=== PATIENT | male | born 1945 | race Caucasian/White ===

== ENCOUNTER 2017-02-20 06:04 | Inpatient (IN) | payer OTHER ==
[~2017-02-20] VITALS: Ht 182.9 cm; Wt 79.9 kg
[2017-02-20 06:46] LABS: HEMOGLOBIN 14.7 gm/dl (14.0-17.5); RED BLOOD COUNT 5.03 M/UL (4.20-5.50); WHITE BLOOD COUNT 7.6 K/UL (4.5-11.0)
[2017-02-20] MEDS ORDERED: MULTI-DAY VITA1 EACH PO (12:06)
[2017-02-20] MEDS ORDERED: METOPROLOL SUC100 MG PO (12:07)
[2017-02-20] MEDS ORDERED: DOXYCYCLINE HY100 MG PO (12:07)
[2017-02-20] MEDS ORDERED: VALSARTAN80 MG PO (12:08)
[2017-02-20] MEDS ORDERED: NITROSTAT 0.40.4 MG SL (12:08)
[2017-02-20] MEDS ORDERED: ASPIR 8181 MG PO (12:09)
[2017-02-21 05:57] LABS: WHITE BLOOD COUNT 7.6 K/UL (4.5-11.0)
[2017-02-21 05:58] LABS: RED BLOOD COUNT 4.51 M/UL (4.20-5.50)
[2017-02-22 04:30] LABS: HEMOGLOBIN 13.5 gm/dl (14.0-17.5); RED BLOOD COUNT 4.69 M/UL (4.20-5.50)
[2017-02-23 04:19] LABS: HEMOGLOBIN 13.2 gm/dl (14.0-17.5); RED BLOOD COUNT 4.53 M/UL (4.20-5.50); WHITE BLOOD COUNT 7.3 K/UL (4.5-11.0)
[2017-02-24] MEDS ORDERED: NORVASC 5 MG TAB5 MG PO (12:36)
[2017-02-24] MEDS ORDERED: DAILY MULTIPLE1 EAC1 PO (12:51)
[2017-02-24] MEDS ORDERED: HYDROCHLOROTHIA25 MG PO ×2 (12:52→12:53)
== END 2017-02-24 14:14 | disposition home or self-care (01) | DRG 683 ==
LOC: ER1 06:04 → ZEROF 10:51 → PROG CARE 10:51
PROVIDERS: Internal Medicine; Internal Medicine Interventional Cardiology; Internal Medicine Nephrology; Physician Assistant; Physician Assistant Medical; ADMIT Internal Medicine
DX: I12.9 Hypertensive chronic kidney disease with stage 1 through stage 4 chronic kidney disease, or unspecified chronic kidney disease (principal); N17.9 Acute kidney failure, unspecified; N18.4 Chronic kidney disease, stage 4 (severe); Q61.2 Polycystic kidney, adult type; I16.0 Hypertensive urgency; I25.10 Atherosclerotic heart disease of native coronary artery without angina pectoris; E78.5 Hyperlipidemia, unspecified; R07.9 Chest pain, unspecified; I65.21 Occlusion and stenosis of right carotid artery; D50.9 Iron deficiency anemia, unspecified; R74.8 Abnormal levels of other serum enzymes; I95.1 Orthostatic hypotension; R42 Dizziness and giddiness; E04.9 Nontoxic goiter, unspecified; R11.2 Nausea with vomiting, unspecified; I25.2 Old myocardial infarction; Z95.5 Presence of coronary angioplasty implant and graft; Z86.73 Personal history of transient ischemic attack (TIA), and cerebral infarction without residual deficits; Z85.828 Personal history of other malignant neoplasm of skin; Z72.3 Lack of physical exercise; Z79.82 Long term (current) use of aspirin; Z79.899 Other long term (current) drug therapy; Z98.890 Other specified postprocedural states; Z82.71 Family history of polycystic kidney; Z82.49 Family history of ischemic heart disease and other diseases of the circulatory system
CPT/HCPCS: ECHO; 36415; 70450; 70551; 71010; 80048; 80053; 80061; 80074; 80307; 81001; 82248; 82550; 82553; 82570; 82607; 83036; 83540; 83550; 83690; 83735; 83874; 83883; 84100; 84156; 84165; 84439; 84443; 84484; 85018; 85025; 85027; 85610; 85730; 86039; 86160; 93005; 93306; 93880; 96361; 96374; 96376; 97110; 97116; 99285; G0378; J0360; J1650; J1756; J2405; J7040; J7050; J7060

== ENCOUNTER → 2020-09-05 | Outpatient (CLI) | payer OTHER ==
[~2020-09-05] MED LIST: ASPIR 8181 MG PO; DAILY MULTIPLE1 EAC1 PO; DOXYCYCLINE HY100 MG PO; HYDROCHLOROTHIA25 MG PO; METOPROLOL SUC100 MG PO; MULTI-DAY VITA1 EACH PO; NITROSTAT 0.40.4 MG SL; NORVASC 5 MG TAB5 MG PO; PREDNISONE10 MG PO; VALSARTAN80 MG PO
== END ==
LOC: RT 13:36
DX: I25.10 Atherosclerotic heart disease of native coronary artery without angina pectoris (principal); R94.31 Abnormal electrocardiogram [ECG] [EKG]
CPT/HCPCS: 93005

== ENCOUNTER → 2022-01-31 | Outpatient (CLI) | payer OTHER | LOC: RAD 15:18 | DX: R05.9 Cough, unspecified (principal) | CPT/HCPCS: 71046 ==